=== PATIENT | female | born 1945 | race Caucasian/White ===

== ENCOUNTER 2016-08-25 15:31 | Emergency (ER) | payer OTHER, MEDICAID ==
[~2016-08-25] VITALS: Ht 167.6 cm; Wt 95.0 kg
[~2016-08-25 15:31] MED LIST: CIPRO250 MG PO; FERROUS SULFAT325 M2 PO; GLU500 PO; LAC PO; LEVOTHYROXIN0.088 M2 PO; NEURONTIN600 MG PO; TES100 PO; TRE400 PO; ULT50 PO; WARFARIN4 M1 PO; ZESTRIL20 MG PO
[2016-08-25 15:43] VITALS: BP 140/80
== END 2016-08-25 16:04 | disposition home or self-care (01) ==
LOC: ED 15:31
DX: L30.9 Dermatitis, unspecified (principal); I11.0 Hypertensive heart disease with heart failure; E11.9 Type 2 diabetes mellitus without complications; J45.909 Unspecified asthma, uncomplicated

== ENCOUNTER 2016-09-11 16:07 | Emergency (ER) | payer OTHER, MEDICAID ==
[2016-09-11 17:36] VITALS: BP 145/69
== END 2016-09-11 17:36 | disposition home or self-care (01) ==
LOC: ED 16:07
DX: L30.9 Dermatitis, unspecified (principal); E11.9 Type 2 diabetes mellitus without complications; E07.9 Disorder of thyroid, unspecified; J45.909 Unspecified asthma, uncomplicated; I11.0 Hypertensive heart disease with heart failure; I50.9 Heart failure, unspecified; Z88.5 Allergy status to narcotic agent
CPT/HCPCS: J1200

== ENCOUNTER 2016-10-23 15:12 | Inpatient (IN) | payer OTHER, MEDICAID ==
[~2016-10-23] VITALS: Ht 160 cm; Wt 97.7 kg
[2016-10-23 16:40] LABS: BASOPHIL % 0.4 % (0-2); PLATELET COUNT 267 x10^3mcL (130-400)
[2016-10-23 16:43] LABS: RED CELL DISTRIBUTION WIDTH 16.1 % (11.5-14.5)
[2016-10-23 16:58] LABS: CALCIUM 8.8 mg/dL (8.5-10.1); CARBON DIOXIDE 30.1 mmol/L (21-32); CHLORIDE SERUM 104 mmol/L (98-107); CREATININE SERUM 0.9 mg/dL (0.6-1.0); GLUCOSE SERUM 79 mg/dL (74-106); POTASSIUM SERUM 4.1 mmol/L (3.5-5.1); SODIUM SERUM 140 mmol/L (136-145)
[2016-10-23 17:03] LABS: ALKALINE PHOSPHATASE 79 U/L (46-116); ALT/SGPT 24 U/L (14-59); AST/SGOT 34 U/L (15-37); TOTAL PROTEIN, SERUM 7.9 g/dL (6.4-8.2)
[2016-10-23 17:04] LABS: ALBUMIN 3.3 g/dL (3.4-5.0)
[2016-10-23 20:03] LABS: MAGNESIUM 1.8 mg/dL (1.8-2.4); PHOSPHOROUS 2.9 mg/dL (2.5-4.9)
[2016-10-23 20:06] LABS: T3 TOTAL 0.91 ng/mL
[2016-10-23 20:14] LABS: FREE T4 0.96 ng/dL (0.76-1.46); FREE THYROXINE INDEX 2.6 ug/dL (1.4-4.5); T4(THYROXINE) 7.3 ug/dL (4.7-13.3)
[2016-10-23 21:13] VITALS: BP 116/71
[2016-10-23 22:07] LABS: microscopic required? NO
[2016-10-23 22:40] LABS: UA SPECIFIC GRAVITY <=1.005 (1.005-1.035); urine erythrocyte NEGATIVE (NEGATIVE)
[2016-10-24 04:02] LABS: AMPHETAMINE QUAL UR NONE DETECTED (NEG <=1000)
[2016-10-24 04:50] VITALS: BP 126/41
[2016-10-24 07:32] LABS: BASOPHIL % 0.3 % (0-2); PLATELET COUNT 235 x10^3mcL (130-400)
[2016-10-24 07:41] LABS: RED CELL DISTRIBUTION WIDTH 16.7 % (11.5-14.5)
[2016-10-24 07:49] LABS: CALCIUM 8.2 mg/dL (8.5-10.1); CARBON DIOXIDE 24.2 mmol/L (21-32); CHLORIDE SERUM 106 mmol/L (98-107); GLUCOSE SERUM 204 mg/dL (74-106); MAGNESIUM 1.6 mg/dL (1.8-2.4); PHOSPHOROUS 3.1 mg/dL (2.5-4.9); POTASSIUM SERUM 4.3 mmol/L (3.5-5.1); SODIUM SERUM 141 mmol/L (136-145)
[2016-10-24 09:23] VITALS: BP 128/56
[2016-10-24 11:48] VITALS: Ht 160 cm; Wt 97.7 kg
[2016-10-24 13:11] VITALS: BP 134/57
[2016-10-24 17:20] VITALS: BP 123/54
[2016-10-24 21:39] VITALS: BP 106/58
[2016-10-25 06:22] VITALS: BP 110/53
[2016-10-25 06:57] LABS: BASOPHIL % 0.5 % (0-2); PLATELET COUNT 209 x10^3mcL (130-400)
[2016-10-25 07:04] LABS: CARBON DIOXIDE 28.4 mmol/L (21-32); CHLORIDE SERUM 109 mmol/L (98-107); CREATININE SERUM 0.9 mg/dL (0.6-1.0); GLUCOSE SERUM 109 mg/dL (74-106); MAGNESIUM 1.9 mg/dL (1.8-2.4); POTASSIUM SERUM 4.1 mmol/L (3.5-5.1); SODIUM SERUM 143 mmol/L (136-145)
[2016-10-25 07:06] LABS: RED CELL DISTRIBUTION WIDTH 16.5 % (11.5-14.5)
[2016-10-25 10:54] VITALS: BP 121/55
[2016-10-25 12:48] VITALS: BP 131/62
[2016-10-25 16:52] VITALS: BP 134/65
[2016-10-25 21:10] VITALS: BP 141/67
[2016-10-26 05:38] VITALS: BP 141/67
[2016-10-26 06:03] LABS: BASOPHIL % 0.4 % (0-2); PLATELET COUNT 219 x10^3mcL (130-400)
[2016-10-26 06:14] LABS: CALCIUM 8.1 mg/dL (8.5-10.1); CARBON DIOXIDE 30.6 mmol/L (21-32); CHLORIDE SERUM 109 mmol/L (98-107); CREATININE SERUM 0.8 mg/dL (0.6-1.0); GLUCOSE SERUM 92 mg/dL (74-106); PHOSPHOROUS 3.5 mg/dL (2.5-4.9); POTASSIUM SERUM 4.6 mmol/L (3.5-5.1); SODIUM SERUM 141 mmol/L (136-145)
[2016-10-26 06:43] LABS: RED CELL DISTRIBUTION WIDTH 16.2 % (11.5-14.5)
[2016-10-26 10:30] VITALS: BP 126/58
[2016-10-26 13:54] VITALS: BP 133/65
[2016-10-26 17:59] VITALS: BP 130/66
[2016-10-26 21:58] VITALS: BP 121/64
[2016-10-27 06:53] LABS: BASOPHIL % 0.6 % (0-2); PLATELET COUNT 232 x10^3mcL (130-400)
[2016-10-27 06:54] LABS: RED CELL DISTRIBUTION WIDTH 16.6 % (11.5-14.5)
[2016-10-27 07:04] LABS: CALCIUM 8.3 mg/dL (8.5-10.1); CHLORIDE SERUM 106 mmol/L (98-107); CREATININE SERUM 0.9 mg/dL (0.6-1.0); GLUCOSE SERUM 126 mg/dL (74-106); POTASSIUM SERUM 4.5 mmol/L (3.5-5.1); SODIUM SERUM 140 mmol/L (136-145)
[2016-10-27 07:15] VITALS: BP 103/63
[2016-10-27 09:47] VITALS: BP 133/60
[2016-10-27] MEDS ORDERED: CELEXA20 MG PO (09:48)
[2016-10-27] MEDS ORDERED: GLU5XL PO (09:48)
[2016-10-27] MEDS ORDERED: LEVOCETIRIZINE D5 M1 PO (09:49)
[2016-10-27] MEDS ORDERED: SYMBICORT1 AE3 INH (09:49)
[2016-10-27] MEDS ORDERED: XOPENEX HF0.045 MG/1 INH (09:50)
[2016-10-27 14:34] VITALS: BP 139/73
[2016-10-27] MEDS ORDERED: GLUCOTROL5 MG PO (15:44)
[2016-10-27 17:37] VITALS: BP 121/48
[2016-10-27 21:46] VITALS: BP 134/60
[2016-10-28 06:12] VITALS: BP 111/53
[2016-10-28 06:29] LABS: BASOPHIL % 0.3 % (0-2); PLATELET COUNT 231 x10^3mcL (130-400)
[2016-10-28 06:36] LABS: CALCIUM 8.5 mg/dL (8.5-10.1); CARBON DIOXIDE 31.8 mmol/L (21-32); CHLORIDE SERUM 106 mmol/L (98-107); CREATININE SERUM 0.8 mg/dL (0.6-1.0); GLUCOSE SERUM 111 mg/dL (74-106); MAGNESIUM 1.7 mg/dL (1.8-2.4); PHOSPHOROUS 3.8 mg/dL (2.5-4.9); POTASSIUM SERUM 4.5 mmol/L (3.5-5.1); SODIUM SERUM 141 mmol/L (136-145)
[2016-10-28 12:19] VITALS: BP 126/64
[2016-10-28] MEDS ORDERED: MONTELUKAST SOD10 M1 PO (12:22)
[2016-10-28] MEDS ORDERED: ROBDML PO (12:22)
[2016-10-28] MEDS ORDERED: XARELTO20 M1 PO (12:23)
[2016-10-28] MEDS ORDERED: MEDDP PO (12:25)
[2016-10-28] MEDS ORDERED: SYNTHROID0.088 MG PO (12:52)
[2016-10-28 13:56] VITALS: BP 126/64
[2016-10-28 16:25] VITALS: BP 142/65
[2016-10-28] MEDS ORDERED: ALBUTEROL1.25 MG/3 NEB (18:03)
== END 2016-10-28 19:55 | disposition home or self-care (01) | DRG 177 ==
LOC: ED 15:12 → DU 18:13
PROVIDERS: Emergency Medicine; Family Medicine; ADMIT Family Medicine
DX: J69.0 Pneumonitis due to inhalation of food and vomit (principal); N17.0 Acute kidney failure with tubular necrosis; J96.01 Acute respiratory failure with hypoxia; E44.1 Mild protein-calorie malnutrition; E87.2 Acidosis; D68.69 Other thrombophilia; E11.65 Type 2 diabetes mellitus with hyperglycemia; E83.42 Hypomagnesemia; K80.20 Calculus of gallbladder without cholecystitis without obstruction; E03.9 Hypothyroidism, unspecified; K76.0 Fatty (change of) liver, not elsewhere classified; Z68.37 Body mass index [BMI] 37.0-37.9, adult; Z86.718 Personal history of other venous thrombosis and embolism
CPT/HCPCS: 36600; 82962; 83880; 84439; 85378; 94150; J1815; J1885; J1940; J1956; J2405; J2930; J3475; J3490; J7030; J7040; J7512; J7613; J7620; J7626; Q0092; Q9967